=== PATIENT | female | born 1965 | race Hispanic/Latino ===

== ENCOUNTER 2024-08-02 18:58 | Emergency (ER) | payer OTHER ==
[~2024-08-02] VITALS: Ht 160 cm; Wt 105.2 kg
[~2024-08-02 18:58] MED LIST: Z.0.VICODIN 5-5001 E
[2024-08-02 19:09] VITALS: PULSE 92; RESP 18; TEMP 100.2
[2024-08-02] MEDS ORDERED: IBUPROFEN600 MG PO (19:31)
[2024-08-02] MEDS ORDERED: TAMIFLU75 MG PO (19:31)
[2024-08-02] MEDS ORDERED: TYLENOL325 MG PO (19:31)
[2024-08-02] MEDS: IBUPROFEN 400 MG TAB PO ONE (19:35)
[2024-08-02 19:40] VITALS: BP 155/81; PULSE 92; RESP 18; TEMP 100.2; O2SAT 98
== END 2024-08-02 19:40 | disposition home or self-care (01) ==
LOC: FSED 19:05
DX: R50.9 Fever, unspecified (principal); J10.1 Influenza due to other identified influenza virus with other respiratory manifestations; R05.9 Cough, unspecified; R53.81 Other malaise; R09.89 Other specified symptoms and signs involving the circulatory and respiratory systems; Z11.52 Encounter for screening for COVID-19; Z85.3 Personal history of malignant neoplasm of breast
CPT/HCPCS: 0223U; 87400; 99283

== ENCOUNTER 2024-11-24 19:40 | Emergency (ER) | payer OTHER ==
[~2024-11-24] VITALS: Ht 160 cm; Wt 109.8 kg
[~2024-11-24 19:40] MED LIST changes: +IBUPROFEN600 MG PO; +TAMIFLU75 MG PO; +TYLENOL325 MG PO
[2024-11-24 19:42] VITALS: PULSE 84; RESP 16; TEMP 98.4
[2024-11-24] MEDS: LORAZEPAM INJ 2 MG/ML VIAL IV ONE (20:32)
[2024-11-24] MEDS: ASPIRIN 81 MG CHEW TAB PO ONE (20:32)
[2024-11-24] MEDS ORDERED: ATIVAN0.5 MG PO (21:47)
[2024-11-24 21:55] VITALS: BP 133/74; PULSE 80; RESP 18; TEMP 98.4; O2SAT 98
== END 2024-11-24 21:54 | disposition home or self-care (01) ==
LOC: FSED 19:43
DX: R07.89 Other chest pain (principal); R51.9 Headache, unspecified; R94.31 Abnormal electrocardiogram [ECG] [EKG]; Z79.60 Long term (current) use of unspecified immunomodulators and immunosuppressants; Z85.3 Personal history of malignant neoplasm of breast; Z87.19 Personal history of other diseases of the digestive system
CPT/HCPCS: 71046; 80048; 80076; 83880; 84484; 85025; 85379; 93005; 96374; 99284; J2060